=== PATIENT | male | born 1985 | race Caucasian/White ===

== ENCOUNTER 2016-09-26 01:47 | Emergency (ER) | payer OTHER ==
[~2016-09-26] VITALS: Ht 160 cm; Wt 94.1 kg
[~2016-09-26 01:47] MED LIST: ATARAX,VISTARIL25 MG PO; ATARAX,VISTARIL50 MG PO; BENADRYL50 MG PD; BENADRYL50 MG PO; DEPAKOTE ER500 MG; DIVALPROEX SOD500 M1 PO; DIVALPROEX SOD500 MG PO; GABAPENTIN100 MG PO; GABAPENTIN300 MG PO; GABAPENTIN600 MG PO; GEODON40 MG PO; GEODON60 MG PO; GEODON80 MG PO; GUANFACINE HCL1 MG PO; GUANFACINE HCL2 MG PO; HYDROCODON-ACE1 EAC7 PO; HYDROXYZINE PAM25 MG PO; HYDROXYZINE PAM50 MG PO; IBUPROFEN600 MG PO; LITHIUM CARBON300 M1 PO; LITHIUM CARBON300 MG PO; LORTAB 5-325 M1 EACH PO; MOBIC15 MG PO; MOTRIN600 MG PO; NAPROXEN500 MG PO; NEURONTIN100 MG PO; NEURONTIN600 MG PO; PEPCID20 MG PO; PERCOCET 5/31 TABLET PO; QUETIAPINE FUMA25 MG PO; SEROQUEL12.5 MG PO; SEROQUEL50 MG PO; TESSALON PERLE100 MG PO; TORADOL10 MG PO; TRAZODONE HCL50 MG PO; TRILAFON4 MG PO; ULTRAM50 MG PO; VYVANSE30 MG PO; ZIPRASIDONE HCL20 MG; ZIPRASIDONE HCL20 MG PO; ZIPRASIDONE HCL80 MG PO; [UNRECOGNIZED DRUG - OTHER] PO
[2016-09-26 01:51] VITALS: BP 124/73
[2016-09-26 02:16] LABS: HEMATOCRIT 41.4 % (38.0-50.0); MCH 29.8 PG (29.0-34.0); MCHC 35.5 G/DL (30.0-36.0); MEAN PLAT.VOLUME 10.1 uM^3 (9.0-12.4); PLATELET COUNT 241 K/uL (156-360); RBC DIS.WIDTH-CV 14.2 % (11.8-14.6); RBC DIS.WIDTH-SD 42.6 % (39-53); RED BLOOD COUNT 4.93 M/uL (4.00-5.50); WHITE BLOOD COUNT 8.1 K/uL (4.1-10.2)
[2016-09-26 02:34] LABS: CHLORIDE 108 mEq/L (99-109)
[2016-09-26 02:35] LABS: POTASSIUM 3.3 mEq/L (3.7-5.4); SODIUM 139 mEq/L (136-147)
[2016-09-26 02:36] LABS: GLUCOSE 121 mg/dL (70-99)
[2016-09-26 02:38] LABS: ANION GAP 9 MEQ/L (2-14)
[2016-09-26 02:39] LABS: SERUM ETHYL ALCOHOL < 10 mg/dL
[2016-09-26 02:40] LABS: GFR ESTIMATE (CALCULATED) > 59 mL/min/
[2016-09-26 02:41] LABS: UREA NITROGEN (BUN) 4 mg/dL (9-23)
== END 2016-09-26 02:50 | disposition left against medical advice (07) ==
LOC: EME 01:47
PROVIDERS: Emergency Medicine
DX: G47.00 Insomnia, unspecified (principal); F90.9 Attention-deficit hyperactivity disorder, unspecified type; F31.9 Bipolar disorder, unspecified
CPT/HCPCS: 80048; 80178; 81003; 85027; 99281; 99282; G0480

== ENCOUNTER 2016-10-29 00:19 | Emergency (ER) | payer OTHER ==
[~2016-10-29] VITALS: Ht 162.6 cm; Wt 93.4 kg
[2016-10-29] MEDS ORDERED: FLEXERIL10 MG PO (01:34)
[2016-10-29] MEDS ORDERED: NAPROSYN500 MG PO (01:34)
[2016-10-29 01:43] VITALS: BP 122/82
== END 2016-10-29 01:45 | disposition home or self-care (01) ==
LOC: EXP 00:19 → EME 00:19 → EXP 01:45
DX: S20.211A Contusion of right front wall of thorax, initial encounter (principal); V18.0XXA Pedal cycle driver injured in noncollision transport accident in nontraffic accident, initial encounter; Y92.410 Unspecified street and highway as the place of occurrence of the external cause; Y93.55 Activity, bike riding; Z88.8 Allergy status to other drugs, medicaments and biological substances
CPT/HCPCS: 71101; 99281; 99283

== ENCOUNTER 2016-12-15 21:45 | Emergency (ER) | payer OTHER ==
[~2016-12-15] VITALS: Ht 160 cm; Wt 92.2 kg
[~2016-12-15 21:45] MED LIST changes: +FLEXERIL10 MG PO; +NAPROSYN500 MG PO
[2016-12-15 22:15] LABS: HEMATOCRIT 46.1 % (38.0-50.0); MCH 29.1 PG (29.0-34.0); MCHC 34.1 G/DL (30.0-36.0); MCV 85.4 FL (86-99); MEAN PLAT.VOLUME 10.4 uM^3 (9.0-12.4); PLATELET COUNT 201 K/uL (156-360); RBC DIS.WIDTH-CV 13.3 % (11.8-14.6); RBC DIS.WIDTH-SD 41.3 % (39-53); WHITE BLOOD COUNT 6.9 K/uL (4.1-10.2)
[2016-12-15 22:29] LABS: CHLORIDE 109 mEq/L (99-109); POTASSIUM 3.8 mEq/L (3.7-5.4); SODIUM 143 mEq/L (136-147)
[2016-12-15 22:31] LABS: GLUCOSE 67 mg/dL (70-99)
[2016-12-15 22:32] LABS: ANION GAP 11 MEQ/L (2-14)
[2016-12-15 22:35] LABS: GFR ESTIMATE (CALCULATED) > 59 mL/min/; TROP-I INTERPRETATION NEGATIVE; TROPONIN-I < 0.01 ng/mL (0.0-0.30)
[2016-12-15 22:36] LABS: UREA NITROGEN (BUN) 7 mg/dL (9-23)
[2016-12-15 23:14] LABS: TOTAL BILIRUBIN 0.8 mg/dL (0.0-1.0)
[2016-12-15 23:15] LABS: ALKALINE PHOSPHATASE 63 IU/L (3-129)
[2016-12-15 23:18] LABS: DIRECT BILIRUBIN 0.2 mg/dL (0.0-0.3)
[2016-12-15 23:19] LABS: LIPASE 28 U/L (1.0-51.0)
[2016-12-16] MEDS ORDERED: ASPIR 8181 M1 PO (00:44)
[2016-12-16] MEDS ORDERED: ZANTAC300 MG PO (00:46)
[2016-12-16 00:48] LABS: TROP-I INTERPRETATION NEGATIVE; TROPONIN-I < 0.01 ng/mL (0.0-0.30)
[2016-12-16 01:04] VITALS: BP 130/73
== END 2016-12-16 01:06 | disposition home or self-care (01) ==
LOC: EME 21:45 → RME 21:45
PROVIDERS: Physician Assistant
DX: R07.2 Precordial pain (principal); R20.0 Anesthesia of skin; F32.9 Major depressive disorder, single episode, unspecified
CPT/HCPCS: 71020; 80048; 80076; 83690; 84484; 85027; 93005; 99281; 99284

== ENCOUNTER 2017-11-14 21:45 | Emergency (ER) | payer OTHER ==
[~2017-11-14] VITALS: Ht 165.1 cm; Wt 89.3 kg
[~2017-11-14 21:45] MED LIST changes: +ASPIR 8181 M1 PO; +ZANTAC300 MG PO
[2017-11-14] MEDS ORDERED: TRAMADOL HCL50 MG PO (22:42)
[2017-11-14 22:57] VITALS: BP 134/88
== END 2017-11-14 22:58 | disposition home or self-care (01) ==
LOC: EME → EDBD 21:45 → EME 22:58
DX: S43.101A Unspecified dislocation of right acromioclavicular joint, initial encounter (principal); W01.0XXA Fall on same level from slipping, tripping and stumbling without subsequent striking against object, initial encounter; Y93.02 Activity, running; F17.200 Nicotine dependence, unspecified, uncomplicated
CPT/HCPCS: 73030; 99281; 99284

== ENCOUNTER 2017-12-08 21:10 | Emergency (ER) | payer OTHER ==
[~2017-12-08] VITALS: Ht 157.5 cm; Wt 89.2 kg
[~2017-12-08 21:10] MED LIST changes: +TRAMADOL HCL50 MG PO
[2017-12-08 23:42] LABS: APPEARANCE CLEAR ((CLEAR)); BILIRUBIN NEGATIVE; BLOOD NEGATIVE; COLOR YELLOW ((YELLOW)); GLUCOSE (STRIP) NEGATIVE; KETONES NEGATIVE; LEUKOCYTES NEGATIVE; NITRITE NEGATIVE; PROTEIN (STRIP) NEGATIVE; SPECIFIC GRAVITY 1.018 (1.000-1.030); UCUL ADDED? NO
[2017-12-08] MEDS ORDERED: MOTRIN600 MG PO (23:55)
[2017-12-09 00:11] VITALS: BP 125/81
== END 2017-12-09 00:04 | disposition home or self-care (01) ==
LOC: EME 21:10
PROVIDERS: Nurse Practitioner Acute Care
DX: N50.811 Right testicular pain (principal); N50.812 Left testicular pain; N50.82 Scrotal pain; F41.9 Anxiety disorder, unspecified; F90.9 Attention-deficit hyperactivity disorder, unspecified type; F32.9 Major depressive disorder, single episode, unspecified; F31.9 Bipolar disorder, unspecified; F91.3 Oppositional defiant disorder; F17.200 Nicotine dependence, unspecified, uncomplicated; Z87.438 Personal history of other diseases of male genital organs; Z98.890 Other specified postprocedural states; Z88.8 Allergy status to other drugs, medicaments and biological substances
CPT/HCPCS: 76870; 81003; 99281; 99284

== ENCOUNTER 2018-01-30 20:56 | Emergency (ER) | payer OTHER ==
[~2018-01-30] VITALS: Ht 162.6 cm; Wt 87.1 kg
[2018-01-30 21:38] LABS: HEMATOCRIT 40.8 % (38.0-50.0); MCH 29.7 PG (29.0-34.0); MCHC 36.8 G/DL (30.0-36.0); MCV 80.8 FL (86-99); PLATELET COUNT 279 K/uL (156-360); RBC DIS.WIDTH-CV 14.2 % (11.8-14.6); RBC DIS.WIDTH-SD 41.1 % (39-53); RED BLOOD COUNT 5.05 M/uL (4.00-5.50); WHITE BLOOD COUNT 5.8 K/uL (4.1-10.2)
[2018-01-30 21:46] LABS: CHLORIDE 108 mEq/L (99-109); POTASSIUM 2.9 mEq/L (3.7-5.4); SODIUM 143 mEq/L (136-147)
[2018-01-30 21:47] LABS: GLUCOSE 83 mg/dL (70-99)
[2018-01-30 21:51] LABS: CREATININE 1.1 mg/dL (0.6-1.3); GFR ESTIMATE (CALCULATED) > 59 mL/min/ (58.99-99999)
[2018-01-30 21:52] LABS: UREA NITROGEN (BUN) 9 mg/dL (9-23)
[2018-01-31 01:07] LABS: CHLORIDE 108 mEq/L (99-109); SODIUM 142 mEq/L (136-147)
[2018-01-31 01:09] LABS: GLUCOSE 90 mg/dL (70-99)
[2018-01-31 01:12] LABS: CREATININE 1.1 mg/dL (0.6-1.3); GFR ESTIMATE (CALCULATED) > 59 mL/min/ (58.99-99999)
[2018-01-31 01:13] LABS: UREA NITROGEN (BUN) 9 mg/dL (9-23)
[2018-01-31] MEDS ORDERED: K-DUR10 MEQ PO (01:43)
[2018-01-31 01:56] VITALS: BP 104/67
== END 2018-01-31 01:57 | disposition home or self-care (01) ==
LOC: EME 20:56
PROVIDERS: Emergency Medicine
DX: E87.6 Hypokalemia (principal); F41.9 Anxiety disorder, unspecified; F90.9 Attention-deficit hyperactivity disorder, unspecified type; F32.9 Major depressive disorder, single episode, unspecified; F98.8 Other specified behavioral and emotional disorders with onset usually occurring in childhood and adolescence; F91.3 Oppositional defiant disorder; F31.9 Bipolar disorder, unspecified; F17.200 Nicotine dependence, unspecified, uncomplicated; Z88.8 Allergy status to other drugs, medicaments and biological substances
CPT/HCPCS: 80048; 85027; 93005; 99281; 99285